=== PATIENT | female | born 1950 | race Hispanic/Latino ===

== ENCOUNTER → 2016-07-17 | Outpatient (CLI) | payer OTHER ==
--- NOTE | 2016-07-17 16:19 | MAM ---
EXAM DESCRIPTION: MAMMO BREAST DIAGNOSTIC BILATERAL Images were reviewed with R2 computer-aided detection. CLINICAL HISTORY: Palpable nodule right breast. COMPARISON: 2013. FINDINGS: Routine views of each breast were obtained. True lateral view right breast as well as spot compression films in the region of palpable change are obtained. The glandular tissue is heterogeneously dense with stable morphology since 2014. Palpable area corresponds with a nodular asymmetry that appears stable since prior study but margins are not visualized. No architectural distortion or clustered microcalcification. Directed ultrasound exam right breast 12 o'clock corresponding to the region of palpable change demonstrates a macrolobulated 1.4 cm Iso to minimally hypoechoic nodule. The sonographic appearance is compatible with a benign lesion such as a fibroadenoma. Because of the glandular density, sonography was performed of the breast tissue bilaterally and in its entirety. Nonpalpable right breast at 12 o'clock 10 mm nodule 2 cm from the nipple and 6 o'clock, cm from nipple not documented, a slightly more superficial 5 mm nodule. Morphology of these 2 lesions is almost certainly benign and compatible with small fibroadenomas. No sonographic abnormality was noted on the left. IMPRESSION: Suspicious exam. Palpable nodule corresponds to a 1.4 cm solid mass right breast with differential considerations including fibroadenoma, papilloma or less likely malignancy. Additional 2 right breast nodules with benign sonographic appearance. BIRAD CATEGORY: 4 SUSPICIOUS FINDINGS RECOMMENDATION: FOLLOW-UP: Ultrasound-guided needle biopsy palpable nodule right breast 12 o'clock. followup ultrasound evaluation right breast in 6 months for additional non palpable nodules 12 o'clock and 6 o'clock. Findings and recommendations were communicated to the patient by the technologist. According to the [employer], yearly mammograms are recommended starting at age 40 and continuing as long as a woman is in good health. Any breast change noted on a breast self-exam should be reported promptly to the patient's healthcare provider. Breast MRI is recommended for women with an approximately 20-25% or greater lifetime risk of breast cancer, including women with a strong family history of breast or ovarian cancer and women who have been treated for Hodgkin's disease. Electronically signed by: Marci Benito 07/17/2016 16:18
--- NOTE | 2016-07-17 16:21 | US ---
EXAM DESCRIPTION: US BREAST UNILATERAL COMPARISON: None available at the time of the exam. IMPRESSION: Ultrasound of the guided needle biopsy palpable nodule right breast with sonographic followup of probably benign nodules as described. This ultrasound evaluation is dictated with the diagnostic mammogram exam. Electronically signed by: Marci Benito 07/17/2016 16:20
== END ==
LOC: MAMMO 14:55
PROVIDERS: ATTEND General Practice
DX: N63 Unspecified lump in breast (principal)

== ENCOUNTER → 2016-08-08 | Outpatient (CLI) | payer OTHER ==
--- NOTE | 2016-08-08 14:10 | OP ---
DATE OF PROCEDURE: 08/08/16 PREOPERATIVE DIAGNOSIS: 1. Abnormal right mammogram with solid mass at the 12 oclock position. POSTOPERATIVE DIAGNOSIS: 1. Abnormal right mammogram with solid mass at the 12 oclock position. PROCEDURE: 1. Sonographically needle core biopsy, right breast mass. SURGEON: Leonel Ramirez MD. DISPATCHER RADIO: None. ANESTHESIA: Local infiltration with 1% lidocaine. INDICATION: The patient is a 66-year-old female who on routine mammography was found to have a mass at the 12 oclock position in the right breast. She was brought to the Ambulatory Unit today for sonographically guided needle core biopsy. FINDINGS: Four good cores were taken, all with the ultrasound revealing the needle within the mass. PROCEDURE: After the patient was brought to the ultrasound suite and placed in the supine position, the right arm was elevated and the right breast was inspected with the ultrasound and the mass was identified. The breast medial to the ultrasound probe was prepped with Betadine paint and draped. Local infiltration of anesthesia was obtained and the 25 gauge needle was advanced and infiltrated the tissue between the insertion site and the mass. When this was done, a stab wound was made with a 15 blade and the needle core biopsy device was advanced and four cores were taken through the mass, all identified by ultrasound to be within the mass. Specimens were sent for pathologic evaluation. Hemostasis was obtained with pressure and a single suture of 4-0 Prolene at the insertion site stab wound. Sterile pressure dressing was applied. The patient tolerated the procedure well. Estimated blood loss was approximately 5 mL. All sponge, needle and instrument counts were correct. #[id number] [facility]
--- NOTE | 2016-08-09 20:03 | US ---
EXAM DESCRIPTION: US GUIDANCE FOR NEEDLE PLACEMENT CLINICAL HISTORY: 66 y/o ,F, BREAST MASS COMPARISON: Diagnostic evaluation from 07/17/2016 IMPRESSION: Several static images are labeled right breast 12 o'clock and demonstrate the needle traversing the nodule of interest. This study does not demonstrate the sonographic complication. Pathology results are currently pending Electronically signed by: Marci Benito 08/09/2016 20:01
== END | disposition home or self-care (01) ==
LOC: US 08:09
PROVIDERS: ATTEND Surgery
PROC: 0HBT3ZX Excision of Right Breast, Percutaneous Approach, Diagnostic (ICD-10-PCS; principal; 2016-08-08)
DX: N63 Unspecified lump in breast (principal)

== ENCOUNTER → 2016-08-21 | Outpatient (CLI) | payer OTHER ==
--- NOTE | 2016-08-21 15:27 | NM ---
EXAM DESCRIPTION: Bone Scan, Whole Body CLINICAL HISTORY: 66 years Female, BREAST CA COMPARISON: None. TECHNIQUE: Whole body bone scan was performed after the IV administration of 27 mCi of technetium 99m MDP. FINDINGS: Normal soft tissue uptake within the kidneys and excretion into the urinary bladder. No abnormal uptake seen on today's study. Symmetrical uptake within the osseous structures. IMPRESSION: No evidence of metastatic disease on today's bone scan. Electronically signed by: Davin Weber MD 08/21/2016 3:27 PM TRAVEL JOURNALIST
== END | disposition home or self-care (01) ==
LOC: NM 09:25
PROVIDERS: ATTEND Surgery
DX: C50.919 Malignant neoplasm of unspecified site of unspecified female breast (principal)

== ENCOUNTER 2016-08-29 06:02 | Inpatient (IN) | payer OTHER ==
--- NOTE | 2016-08-27 15:49 | RAD ---
EXAM DESCRIPTION: Chest,2 Views CLINICAL HISTORY: Pre-op COMPARISON: None FINDINGS: Two-view chest x-ray shows cardiomediastinal silhouette and pulmonary vasculature to be within normal limits. Tortuosity of the thoracic aorta is seen. The lungs are normally aerated and clear. Costophrenic angles are sharp. Osseous structures are unremarkable IMPRESSION: No radiographic evidence of acute cardiopulmonary disease. Electronically signed by: Hari Caruso MD 08/27/2016 3:48 PM MANUFACTURING RECRUITER
[2016-08-29] MEDS ORDERED: LACTATED RINGERS 1,000 ML ONE (07:08)
[2016-08-29] MEDS ORDERED: SODIUM CHL 0.9% 100ML MINI-BAG 100 ML IVPB ONE (07:08)
[2016-08-29] MEDS ORDERED: ceFAZolin SODIUM 1 GM VIAL ONE (07:08)
--- NOTE | 2016-08-29 09:00 | HP ---
CHIEF COMPLAINT: Biopsy proven carcinoma of the right breast. HISTORY OF PRESENT ILLNESS: The patient is a 66-year-old female who underwent mammography revealing a right breast mass. A needle core sonographically guided biopsy was obtained which revealed an invasive carcinoma. It is HER2 negative or equivocal. After the risks, benefits and alternatives to mastectomy versus lumpectomy and radiation therapy, the patient is brought to the Surgical Suite today for right modified radical mastectomy. PAST MEDICAL HISTORY: 1. Diabetes mellitus. 2. Hypertension. 3. Arthritis. 4. Multiple urinary tract infections. PAST SURGICAL HISTORY: 1. times three. 2. Laparoscopic cholecystectomy. 3. Hysterectomy. 4. Colonoscopy. 5. Breast biopsy in July. CURRENT MEDICATIONS: 1. Metformin. 2. Lisinopril. 3. Atenolol. 4. Levothyroxine. 5. Oral vitamins. ALLERGIES: NO KNOWN DRUG ALLERGIES. FAMILY HISTORY: Noncontributory. SOCIAL HISTORY: The patient does not use tobacco or alcohol. REVIEW OF SYSTEMS: The patient did take hormone supplementation which she quit in May of 2016. There has been no weight loss, no upper respiratory symptoms, no urinary tract symptoms recently. PHYSICAL EXAMINATION: GENERAL: The patient is awake, alert, cooperative, in no acute distress. VITAL SIGNS: The patient is currently afebrile, normotensive. HEENT: Sclerae nonicteric. Mucous membranes moist. NECK: Without cervical or supraclavicular adenopathy. CHEST: Equal breath sounds bilaterally. HEART: Regular rate and rhythm. BREASTS: The right breast has a healing scar with no significant ecchymosis or mass. The left breast is without skin change, nipple discharge, or mass. Axillae without adenopathy. BACK: Without CVA tenderness. ABDOMEN: Soft and benign. PELVIC/RECTAL: Deferred. EXTREMITIES: Without cyanosis, clubbing or edema. LABORATORY: At time of admission, white count 5.6, heartbeat 13.7, platelet count 205,000, 55% neutrophils. Potassium 4.1, glucose 123, liver functions within normal limits. Creatinine 0.64. EKG revealed normal sinus rhythm. Chest x-ray is clear. ASSESSMENT: 1. Biopsy proven carcinoma of the right breast. PLAN: She will be admitted today for right modified radical mastectomy under general anesthesia. #[id number] [facility]
[2016-08-29] MEDS ORDERED: MIDAZOLAM INJ 5 MG/5 ML VIAL ONE (09:58)
[2016-08-29] MEDS ORDERED: HYDROmorphone HCL INJ 2 MG/ML VIAL ONE (09:58)
[2016-08-29] MEDS ORDERED: ELECTROLYTE-A 1,000 ML ONE (11:01)
[2016-08-29] MEDS ORDERED: ACETAMINOPHEN IV 1000MG 100 ML ONE (11:05)
[2016-08-29] MEDS ORDERED: METOCLOPRAMIDE HCL INJ 10 MG/2 ML VIAL IV ONE (12:00)
[2016-08-29] MEDS ORDERED: ePHEDrine SULF 50 MG/ML IV ONE (12:00)
[2016-08-29] MEDS ORDERED: PROPOFOL 200 MG/20 ML VIAL IV ONE (12:00)
[2016-08-29] MEDS ORDERED: raNITIdine HCL INJ 25 MG/ML VIAL IV ONE (12:00)
[2016-08-29] MEDS ORDERED: LIDOCAINE 1% 10 ML VIAL INJ ONE (12:00)
[2016-08-29] MEDS ORDERED: DEXAMETHASONE INJ 10 MG/ML VIAL IV ONE (12:00)
[2016-08-29] MEDS ORDERED: SODIUM CHLORIDE 0.9% 50 ML VIAL INJ ONE (12:00)
[2016-08-29] MEDS ORDERED: ONDANSETRON INJ 4 MG/2 ML VIAL IV PRN ×2 (13:08→15:24)
--- NOTE | 2016-08-29 13:48 | OP ---
DATE OF PROCEDURE: 08/29/16 PREOPERATIVE DIAGNOSIS: 1. Carcinoma of the right breast. POSTOPERATIVE DIAGNOSIS: 1. Carcinoma of the right breast. PROCEDURE: 1. Right modified radical mastectomy. SURGEON: Leonel Ramirez MD. GARBAGE PICK UP MAN: None. ANESTHESIA: General laryngeal mask anesthesia. INDICATION: The patient is a 66-year-old female who underwent a sonographically guided needle core biopsy which revealed an invasive carcinoma that is HER2 negative and, therefore, after the risks, benefits and alternatives to mastectomy versus lumpectomy, radiation with or without sentinel node biopsy and immediate reconstruction were discussed and accepted by the patient. She was brought today to the hospital for right modified radical mastectomy. FINDINGS: There was no abnormal lymphadenopathy. There were lymph nodes identified that were all normal sized. No other pathology was identified. PROCEDURE: After adequate general laryngeal mask anesthesia was obtained, the patient was prepped and draped in the usual sterile manner. At this time, surgical time-out was taken and then superior and inferior incisions were planned with the marking pen, then a superior flap was taken first with a sharp knife, the dissection was carried down through the skin and into the subcutaneous tissue using electrocautery. [place] thyroid fibroid grasping forceps were then placed on the skin and superior flap was elevated using electrocautery and blunt dissection and occasionally clamps for hemostasis. When this was done, hemostasis was noted to be adequate. Moist sponge was placed under the superior flap which was taken superiorly to the clavipectoral fascia and medially to the sternum. The inferior flap was then taken in a like manner down to the rectus abdominis fascia inferiorly. When this was done, the breast was taken from superior to inferior and then the dissection was carried into the axilla. At this point, the axillary dissection was performed with the superior margin being the axillary vein, posterior the nerves. The specimen was taken en bloc and then sent for pathologic evaluation. Small area of the inferior flap was noted to be thicker, so this was taken and sent as a second specimen as superficial breast tissue, lower medial flap. When this was done, the axilla and chest wall were washed with saline. Hemostasis was noted to be adequate. Two 15 Swiss round drains were brought in through the inferior flap, one placed in the axilla, the other placed on the chest wall. They were sutured in place with 3-0 Nylon ligatures. When this was done, the skin edges were reapproximated with a running 3-0 Vicryl. They were then irrigated through the medial meeting point of the two sutures. They were then tightened and tied and the irrigant was aspirated through the drains. When the fluid had been aspirated, the skin edges were approximated with a skin stapler. The drains were cut to appropriate length and grenade suction devices were placed on each one. Sterile pressure dressing was applied. The patient was then awakened and taken to the Recovery Room in stable condition. Estimated blood loss was 250 mL. All sponge, needle and instrument counts were correct. #[id number] [facility]
[2016-08-29] MEDS ORDERED: PROMETHAZINE HCL INJ 25 MG/ML VIAL ONE (14:09)
[2016-08-29] MEDS ORDERED: SODIUM CHL 0.9% 50ML MIN-BAG+ 50 ML IVPB ONE (14:09)
[2016-08-29] MEDS ORDERED: SODIUM CHLORIDE 0.9% 10 ML VIAL IV PRN (15:26)
[2016-08-29] MEDS: HYDROmorphone HCL INJ 2 MG/ML VIAL IV PRN ×3 (15:30→23:51)
[2016-08-29] MEDS ORDERED: IV SET AND CAP CHANGE INJ INJ SCH (16:00)
[2016-08-29] MEDS ORDERED: DEXTROSE 50% 25 GM/50 ML SYG IV PRN (18:05)
[2016-08-29] MEDS ORDERED: GLUCAGON INJ 1 MG VIAL SUBCU PRN (18:05)
[2016-08-29] MEDS: LACTATED RINGERS 1,000 ML IVS PRN (18:35)
[2016-08-29] MEDS: ONDANSETRON INJ 4 MG/2 ML VIAL IV PRN (18:50)
--- NOTE | 2016-08-29 19:58 | CONS ---
DATE OF CONSULTATION: 08/29/16 SUPERVISING PHYSICIAN: Christiano Webb M.D. CHIEF COMPLAINT: Biopsy-proven carcinoma of the right breast. HISTORY OF PRESENT ILLNESS: This is a 66 year-old female patient who has seen Dr. Ramirez and underwent a right modified radical mastectomy today after a needle core sonographically guided biopsy was obtained that revealed an invasive carcinoma. It is HER2 negative or equivocal. I am seeing the patient postoperatively for medical management. PAST MEDICAL HISTORY: 1. Diabetes mellitus. 2. Hypertension. 3. Arthritis. 4. History of multiple urinary tract infections. 5. Hypothyroidism. PAST SURGICAL HISTORY: 1. section times 3. 2. Laparoscopic cholecystectomy. 3. Hysterectomy. 4. Colonoscopy. 5. Breast biopsy in July. CURRENT MEDICATIONS: Per the EMR and awaiting verification. ALLERGIES: NO KNOWN DRUG ALLERGIES. FAMILY HISTORY: Noncontributory. SOCIAL HISTORY: The patient denies any tobacco, ETOH or illicit drug use. REVIEW OF SYSTEMS: She denies any fever or chills, sinus symptoms, sore throat , coughing, wheezing, chest pain, abdominal pain, nausea or vomiting. PHYSICAL EXAMINATION: VITAL SIGNS: Afebrile, heart rate 101, blood pressure 135/75, respiratory rate 12, O2 sat 91% on room air. GENERAL: This is a 66 year-old female patient who is lying in her hospital bed. She is in no acute distress. HEENT: Normocephalic and atraumatic. Pupils are equal and reactive. NECK: Supple without mass. CHEST: Clear to auscultation bilaterally. She does have an Rojas bandage across the right chest with a dressing underneath that is dry and intact. HEART: Regular rate and rhythm. ABDOMEN: Soft, nondistended, non-tender. Bowel sounds are hypoactive. EXTREMITIES: No cyanosis, clubbing or edema. LABORATORY: Glucoses have been 126 and 203. Chest x-ray shows no radiographic evidence of acute cardiopulmonary disease. Prior chemistries from 08/21/16 are basically within normal limits with the exception of her glucose is slightly elevated at 203. Hemoglobin A1c is 6.2%. Triglycerides are 203 and LDL is 132. WBCs 5.6, hemoglobin 13.7, hematocrit 40.1. All other labs and films have been reviewed via the EMR. ASSESSMENT: 1. Carcinoma of the right breast status post right modified radical mastectomy per Dr. Ramirez, General Surgeon. 2. Diabetes mellitus type 2. 3. Hypertension. 4. Hypothyroidism. PLAN: We will defer surgical issues per Dr. Ramirez. I have restarted her home medications. I have also placed her on sliding scale insulin to cover her blood sugars overnight. We will restart her Metformin tomorrow when she is discharged. Otherwise we will follow the patient medically and treat as necessary. Dr. Webb is the collaborating physician available for consultation. [facility][id number] [facility]
[2016-08-29] MEDS: ENOXAPARIN SODIUM 40 MG/0.4 ML SYG SUBCU SCH (21:23)
[2016-08-29] MEDS: INSULIN LISPRO 100 UNITS/ML PEN SUBCU SCH (21:39)
[2016-08-29] MEDS: SODIUM CHLORIDE 0.9% (FLUSH) 10 ML SYG IV PRN (23:50)
[2016-08-30] MEDS: SODIUM CHLORIDE 0.9% (FLUSH) 10 ML SYG IV PRN ×3 (05:46→20:30)
[2016-08-30] MEDS: HYDROmorphone HCL INJ 2 MG/ML VIAL IV PRN (05:47)
[2016-08-30] MEDS: ONDANSETRON INJ 4 MG/2 ML VIAL IV PRN (06:24)
[2016-08-30] MEDS: LACTATED RINGERS 1,000 ML IVS PRN (06:24)
[2016-08-30] MEDS: PANTOPRAZOLE SODIUM TAB 40 MG PO SCH (06:45)
[2016-08-30] MEDS ORDERED: LEVOTHYROXINE SODIUM 0.088 MG TAB ONE (07:37)
[2016-08-30] MEDS ORDERED: LISINOPRIL 10 MG TAB ONE (07:37)
[2016-08-30] MEDS: INSULIN LISPRO 100 UNITS/ML PEN SUBCU SCH ×4 (08:45→21:30)
[2016-08-30] MEDS: LEVOTHYROXINE SODIUM 0.088 MG TAB PO SCH (09:15)
[2016-08-30] MEDS: LISINOPRIL 10 MG TAB PO SCH (09:15)
[2016-08-30] MEDS ORDERED: ONDANSETRON INJ 4 MG/2 ML VIAL IV PRN (10:03)
[2016-08-30] MEDS ORDERED: MAGNESIUM HYDROXIDE 30 ML UD PO ONE (10:03)
[2016-08-30] MEDS ORDERED: metFORMIN HCL 500 MG TAB PO SCH (12:30)
[2016-08-30] MEDS: HYDROcodone 5MG/APAP 325MG 1 EA TAB PO PRN ×2 (13:42→20:14)
--- NOTE | 2016-08-30 14:22 | PN ---
DATE: 08/30/16 SUPERVISING PHYSICIAN: Christiano Webb M.D. SUBJECTIVE: The patient is sitting up in her bed. She complains of some nausea and general fatigue. Otherwise she has very little pain at this time. OBJECTIVE: VITAL SIGNS: Afebrile, heart rate 99, blood pressure 122/74, respiratory rate 18, O2 sat 97%. RESPIRATORY: Essentially clear to auscultation bilaterally. CARDIAC: Regular rate and rhythm. ABDOMEN: Soft, nondistended, non-tender. Bowel sounds are positive. The dressing to her chest is dry and intact. NEUROLOGIC: She is awake, alert and oriented times three. LABORATORY: H&H is 10.9 and 32.3. Blood sugars have run from 111 to 206. All other labs and films have been reviewed via the EMR. ASSESSMENT: 1. Carcinoma of the right breast status post right modified radical mastectomy per Dr. Ramirez, General Surgeon. 2. Diabetes mellitus type 2. 3. Hypertension. 4. Hypothyroidism. PLAN: We will continue present supportive care, including frequent ambulation as well as good pulmonary toilet. Will defer to Dr. Ramirez for the surgical issues. Will keep close eye on her glucoses as she is presently on sliding scale. I will go ahead and restart her diabetic medications at this time. Meanwhile we will continue to monitor her medically and followup as needed. Dr. Webb is the collaborating physician available for consultation. #[id number] [facility]
[2016-08-30] MEDS: ENOXAPARIN SODIUM 40 MG/0.4 ML SYG SUBCU SCH (20:31)
[2016-08-31] MEDS: HYDROcodone 5MG/APAP 325MG 1 EA TAB PO PRN ×2 (05:47→10:01)
[2016-08-31] MEDS: PANTOPRAZOLE SODIUM TAB 40 MG PO SCH (06:36)
[2016-08-31] MEDS: LEVOTHYROXINE SODIUM 0.088 MG TAB PO SCH (06:36)
[2016-08-31] MEDS: INSULIN LISPRO 100 UNITS/ML PEN SUBCU SCH ×2 (07:10→12:16)
[2016-08-31] MEDS ORDERED: metFORMIN HCL 500 MG TAB PO SCH (07:30)
[2016-08-31] MEDS: LISINOPRIL 10 MG TAB PO SCH (09:07)
[2016-08-31 10:37] VITALS: BP 145/77; TEMP 97.3; O2SAT 95
[2016-08-31] MEDS ORDERED: PNEUMOCOCCAL VACCINE 0.5 ML INJ IM ONE (10:55)
--- NOTE | 2016-08-31 11:59 | DS ---
FINAL DIAGNOSIS: 1. Carcinoma of the breast. The pathological staging is pending. SURGICAL PROCEDURE: 1. The patient underwent a right modified radical mastectomy on 08/29/16. HISTORY OF PRESENT ILLNESS: The patient is a 66-year-old female who underwent mammography revealing a right breast mass. A needle core sonographically guided biopsy was obtained which revealed an invasive carcinoma. It is HER2 negative or equivocal. After the risks, benefits and alternatives to mastectomy versus lumpectomy and radiation therapy, the patient is brought to the Surgical Suite today for right modified radical mastectomy. LABORATORY: On the day prior to discharge, the patient's hemoglobin was 10.9, white count 9.4. She had 186,000 platelets and 71% neutrophils. The pathology is pending. HOSPITAL COURSE: The patient was admitted to the Surgical Suite on 08/29/16. She underwent the right modified radical mastectomy without significant difficulty. On the first postoperative day, the drainage was moderate and serosanguinous. Her pain was controlled. She did have some mild nausea which finally resolved, so she was advanced from a clear liquid diet to a regular diet. On the evening of the first postoperative morning, her IV was also discontinued that day. She was tolerating oral pain medication and a regular diet. On the second postoperative morning, she was discharged home after her dressing was changed and the flaps were viable, and the drainage was serosanguinous with small clots. Condition on discharge is good. Prognosis is good pending the pathology report. PLAN: She is discharged on her regular diabetic diet. She is discharged to take her home medications plus a new prescription for Hydrocodone. She is discharged with instructions that she cannot bathe and get her drain sites wet. She is to do dressing changes once daily and strip the J-P drains. She can ambulate. Do no heavy lifting or exercise. She is not to use her right arm for any significant activity. She is to elevate her right arm as much as possible in the immediate postoperative period. She will be appointed for an appointment this coming Thursday and she is to call me if she has problems before that. She is also instructed to keep an accurate I and O of her J-P drainage and bring it with her to her appointment. #[id number] [facility]
== END 2016-08-31 11:45 | disposition home or self-care (01) | DRG 583 ==
LOC: AMB 06:02 → MS 14:38
PROVIDERS: ADMIT Surgery; ATTEND Surgery
PROC: 07T50ZZ Resection of Right Axillary Lymphatic, Open Approach (ICD-10-PCS; 2016-08-29)
PROC: 0HTT0ZZ Resection of Right Breast, Open Approach (ICD-10-PCS; principal; 2016-08-29 10:15)
DX: C50.911 Malignant neoplasm of unspecified site of right female breast (principal); R11.0 Nausea; I10 Essential (primary) hypertension; E11.9 Type 2 diabetes mellitus without complications; M19.90 Unspecified osteoarthritis, unspecified site; E03.9 Hypothyroidism, unspecified; Z17.1 Estrogen receptor negative status [ER-]; Z87.440 Personal history of urinary (tract) infections; Z90.710 Acquired absence of both cervix and uterus; Z79.84 Long term (current) use of oral hypoglycemic drugs; Z79.899 Other long term (current) drug therapy

== ENCOUNTER → 2017-06-08 | Outpatient (CLI) | payer OTHER | LOC: GMA 16:31 | PROVIDERS: ATTEND Physician Assistant | DX: N30.00 Acute cystitis without hematuria (principal) ==

== ENCOUNTER → 2017-09-24 | Outpatient (CLI) | payer OTHER | END | disposition home or self-care (01) | LOC: MAMMO 15:08 | PROVIDERS: ATTEND Family Medicine | DX: Z12.31 Encounter for screening mammogram for malignant neoplasm of breast (principal) ==

== ENCOUNTER → 2018-10-19 | Outpatient (CLI) | payer OTHER ==
--- NOTE | 2018-10-20 12:21 | MAM ---
EXAM DESCRIPTION: 3D Screening BILATERAL : Digital Mammography. CLINICAL HISTORY: 68 years Female SCREENING personal history of right breast cancer August 2016 with mastectomy. No complaints. No remote family history of breast cancer. Childbirth. Postmenopausal 20 years. No HRT. Lifetime risk of developing breast cancer (Tyrer-Cuzick model)(%): Not calculated due to history of personal breast cancer. COMPARISON: Left breast screening digital tomosynthesis. 09/24/2017. TECHNIQUE: Left breast CC and MLO projection full-field images, digital tomosynthesis mammographic technique. Left breast digital 2-D full-field MLO images. CAD not available for tomosynthesis or 2-D images. FINDINGS: Left breast parenchymal density pattern is: Heterogeneously dense breast tissue, which may obscure small masses. No skin thickening or nipple retraction. Left axillary lymph nodes. Vascular calcifications. Solitary calcifications. Smaller calcifications distributed within dense fibroglandular tissues. No new focal, stellate mass or density, focal asymmetry , and no suspicious microcalcifications left breast. Stable mammograms compared to prior study. IMPRESSION: Benign exam. BIRAD CATEGORY: 2 BENIGN FINDINGS. RECOMMENDATIONS: FOLLOW UP: Routine digital left breast mammographic screening, one year interval from September 2018. Written communication explaining the IMPRESSION and follow-up, will be mailed to the patient and referring health care provider. The FINDINGS and the FOLLOW-UP plan were reviewed in person with the patient after the examination. According to the [employer], yearly mammograms are recommended starting at age 40 and continuing as long as a woman is in good health. Any breast change noted on a breast self-exam should be reported promptly to the patient's healthcare provider. Breast MRI is recommended for women with an approximately 20-25% or greater lifetime risk of breast cancer, including women with a strong family history of breast or ovarian cancer and women who have been treated for Hodgkin's disease. A negative mammographic report should not delay tissue diagnosis in patients with significant clinical history or physical findings. Extremely dense breast tissue limits the sensitivity of digital mammography. Electronically signed by: Martín Johnston MD 10/20/2018 12:18 PM CDT
== END ==
LOC: MAMMO 14:51
PROVIDERS: ATTEND General Practice
DX: Z12.31 Encounter for screening mammogram for malignant neoplasm of breast (principal)

== ENCOUNTER → 2019-03-18 | Outpatient (CLI) | payer OTHER | LOC: LAB.O 11:26 | PROVIDERS: ATTEND Otolaryngology Otolaryngology/Facial Plastic Surgery | DX: J35.1 Hypertrophy of tonsils (principal); E06.3 Autoimmune thyroiditis ==

== ENCOUNTER → 2020-01-18 | Outpatient (CLI) | payer OTHER | LOC: GMAE 10:22 | PROVIDERS: ATTEND Family Medicine | DX: E03.9 Hypothyroidism, unspecified (principal); E11.9 Type 2 diabetes mellitus without complications; I10 Essential (primary) hypertension; E78.2 Mixed hyperlipidemia; R94.5 Abnormal results of liver function studies ==

== ENCOUNTER → 2020-01-23 | Outpatient (CLI) | payer OTHER ==
--- NOTE | 2020-01-23 15:53 | US ---
EXAM DESCRIPTION: Liver: ULTRASOUND. CLINICAL HISTORY: ABNORMAL RESULTS OF LIVER FUNCTION STUDIES COMPARISON: None. TECHNIQUE: Transabdominal scannin-dimensional and Doppler modes. FINDINGS: Gallbladder: Surgically absent. No fluid in the gallbladder fossa. Non-tender with transducer pressure. Common bile duct: not visualized. Liver: Increased echogenicity; contour liver capsule smooth where seen. No fluid around the liver. Intrahepatic biliary ducts normal caliber. Doppler hepatopedal flow portal vein. 6.1 mm caliber. Long axis right lobe 16.9 cm. Pancreas: normal size and echogenicity. Duct not seen. Right kidney: long axis measures 8.6 cm. Volume 9 6.7 mL. Normal cortical echogenicity. Normal cortical thickness. No echogenic stones and no hydronephrosis. Aorta proximal: 1.97 cm normal caliber. IMPRESSION: 1. Fatty liver mildly enlarged. Normal vascularity and ducts. Smooth capsule with no ascites. Pancreas is negative. 2. Prior cholecystectomy. No tenderness at the site and no fluid. Common bile duct was not seen. 3. Right kidney is negative. Normal caliber proximal abdominal aorta. Electronically signed by: Martín Johnston MD 01/23/2020 3:51 PM CDT
== END ==
LOC: US 08:19
PROVIDERS: ATTEND Family Medicine
DX: K76.0 Fatty (change of) liver, not elsewhere classified (principal); R94.5 Abnormal results of liver function studies; Z90.49 Acquired absence of other specified parts of digestive tract

== ENCOUNTER → 2020-05-08 | Outpatient (CLI) | payer BC, OTHER ==
--- NOTE | 2020-05-09 14:30 | MRI ---
Study: MRI of the Left Hip. Indication: PAIN IN LEFT HIP Technique: Multiplanar, multi sequence MRI of the left hip was obtained without intravenous contrast. Comparison: None. Findings: Mixed grade 2 and 3 chondral thinning throughout the left hip joint. Tiny joint effusion. No acute fracture or osteonecrosis. Degeneration left hip labrum. Tendinosis bilateral gluteus minimus/medius insertions with mild bilateral greater trochanter bursal edema. Tendinosis bilateral hamstring tendon origins. No high-grade pelvic tendon tear. Mild pubic symphysis osteoarthritis. At least mild right hip osteoarthritis. Along the anterior margin of the right hip joint is a multilobulated 25 mm ganglion versus paralabral cyst versus venous varix. Impression: Mild bilateral hip osteoarthritis without acute fracture or osteonecrosis. Multilobulated fluid signal intensity lesion anterior to the right hip joint which could reflect a ganglion, paralabral cyst, or venous varix. A postcontrast MRI of the right hip could better evaluate to exclude enhancing mass lesion. Additional findings as above. Electronically signed by: Tj Ruiz MD 05/09/2020 2:29 PM [facility]
== END ==
LOC: MRI 14:19
PROVIDERS: ATTEND Family Medicine Sports Medicine
DX: M16.12 Unilateral primary osteoarthritis, left hip (principal); M25.9 Joint disorder, unspecified

== ENCOUNTER → 2020-07-31 | Outpatient (CLI) | payer BC | LOC: GMA CAST 11:04 | PROVIDERS: ATTEND Family Medicine Sports Medicine | DX: E03.9 Hypothyroidism, unspecified (principal); E11.9 Type 2 diabetes mellitus without complications ==